=== PATIENT | female | born 1995 | race Caucasian/White ===

== ENCOUNTER 2022-08-03 15:22 | Emergency (ER) | payer MEDICAID ==
[~2022-08-03] VITALS: Ht 162.6 cm; Wt 10.9 kg
[~2022-08-03 15:22] MED LIST: CYCL-1 PO; DIPH-423 PO; FAMO-128 PO; HYDR-4383 PO; HYDR50TA65 PO; NO HOME MEDS; PRED50TA PO; RANI-320 PO
[2022-08-03 15:28] VITALS: BP 129/88
[2022-08-03] MEDS ORDERED: cephalexin 500mg capsule PO ONE (18:55)
[2022-08-03] MEDS ORDERED: CEPH500C2 PO (19:33)
[2022-08-03] MEDS ORDERED: scopolamine 1mg/72 hr patch TD ONE (19:45)
== END 2022-08-03 20:10 | disposition home or self-care (01) ==
LOC: ER 15:23
DX: R06.02 Shortness of breath (principal); Z20.822 Contact with and (suspected) exposure to COVID-19; R53.83 Other fatigue; R42 Dizziness and giddiness; R11.0 Nausea; K21.9 Gastro-esophageal reflux disease without esophagitis; F41.9 Anxiety disorder, unspecified; Z88.1 Allergy status to other antibiotic agents; Z79.899 Other long term (current) drug therapy
CPT/HCPCS: 87635; 93005; 99284; C9803